=== PATIENT | female | born 1945 | race Caucasian/White ===

== ENCOUNTER 2019-12-24 10:00 | Outpatient (RCR) | payer MEDICARE, MEDICAID, SELFPAY ==
--- NOTE | 2019-12-12 14:36 | PTOPEVAL ---
PHYSICAL THERAPY EVALUATION AND PLAN OF CARE 12-12-2019 The PT evaluation was completed for the diagnosis of balance and gait disorder. Her plan of treatment is scheduled for 2x/week for 4 weeks. Thank you for referring Yesenia Denise to [facility] [place] Please review, sign, date and return this plan of care VALDO. I agree with and certify that the following plan of care is medically necessary. Referring Physician Date Attending Provider: Dr. Alice Reyes *PT Outpatient Evaluation Start: 12/12/19 13:47 Document 12/12/19 13:47 DILSHAD (Rec: 12/12/19 14:31 DILSHAD [id number]) Therapy Assessment Status Assessment Status Assessment Status Evaluation Outpatient Past Medical History Past Medical History Source of Past Medical History Patient Neurological History Hx Neurological Disorders No Significant History Cardiovascular History Hx Hypertension Yes: meds control Hx Other Cardiac Disorders Yes: on blood thinner Respiratory History Hx Chronic Obstructive Pulmonary Disease Yes: inhaler (COPD) Gastrointestinal History Hx Other Gastrointestinal Disorders Yes: benign tumor removed from edge of colon;constipation/diarrhea issues Musculoskeletal History Hx Back Pain Yes: sciatica into R LE Hx Fibromyalgia Yes: neck and B arm pain- to have MRI tomorrow Hx Orthopedic Surgery Yes: B TKR Hx Other Musculoskeletal Disorders Yes: wound R lower leg; 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 Endocrine History Hx Endocrine Disorders No Significant History HEENT History Hx Other HEENT Disorders Yes: med for dry nose , due to cautherized nose for bleeding Other History Hx Other Medical Conditions Yes: obesity; chronic swelling of legs Evaluation Information Problem Diagnosis gait and balance issues Onset Jan 2019 Subjective Information gradual weakness and walking Query Text:As Reported By Patient/ problems, had UTI and dr Family changed meds- was not taking med right and taking too many meds'; Previous Treatments Previous Treatments For This Problem no PT for balance/walking Prior Level of Function Activity Level (Last 3 Months) Occupation retired Indoor/Home Mobility Independent Community Mobility Independent Functional Cognition (Planning, Shopping Independent , Taking Medications) Cooking Yes Cleaning Yes Laundry Yes Shopping Yes Driving
--- NOTE | 2019-12-19 15:04 | PCPTNOTE ---
discussed with pt that our office staff is not allowed to assist pt in/out of the building; as an out pt facility, our pt are required to walk into the building indep. I assisted her to the car at the end of the session for safety and assess her car transfer. But told her in the future, she would have to be able to do this herself.
--- NOTE | 2019-12-26 15:42 | PCPTNOTE ---
Patient called & cancelled scheduled appointment this date due to illness.
--- NOTE | 2019-12-31 13:47 | PCPTNOTE ---
pt called and canceled today's appt due to being ill.
--- NOTE | 2020-01-08 12:40 | PCPTNOTE ---
Patient called & cancelled scheduled appointment this date due to not feeling well.
--- NOTE | 2020-01-11 09:28 | PCPTNOTE ---
pt called and canceled today's appt;
--- NOTE | 2020-01-22 13:20 | PCPTNOTE ---
PHYSICAL THERAPY DISCHARGE 01-22-2020 Attending Provider: Dr. Alice Reyes Patient:Yesenia Denise Date of :1945 Mrs. Denise has not returned for any further treatments since 12/24/2019, therefore she will be discharged at this time. Argelia received the PT evaluation and one treatment session for the diagnosis of gait instability. The goals were not assessed due to her not returning for therapy. Thank you for referring Mrs. Denise to [facility]. Please review, sign, date and return this discharge summary VALDO. I have been updated about the patient's current status and I agree with discharge from the above service at this time. Referring Physician Date
== END 2020-01-22 14:06 | disposition home or self-care (01) ==
LOC: ANHPT 10:00
PROVIDERS: PCP Internal Medicine
DX: R26.81 Unsteadiness on feet (principal); Z91.81 History of falling
CPT/HCPCS: 97110; 97161

== ENCOUNTER 2020-02-07 08:06 | Outpatient (RCR) | payer MEDICARE, MEDICAID, SELFPAY ==
[2019-11-12 10:30] VITALS: BMI 40.7
--- NOTE | 2019-11-20 13:09 | WPDWOUNDNOTE ---
Wound Care Note Date/Time: 11/19/19 13:09 (Backdated to 11/19/19 when patient was seen in wound clinic) History: Past medical history: Paroxysmal atrial flutter on Eliquis for chronic anticoagulation Chronic diastolic heart failure Chronic pain due to Fibromyalgia and Sciatica - on narcotics chronically. Followed at [facility]. Chronic obstructive pulmonary disease Morbid obesity Chronic bilateral venous stasis with superficial bilateral ulcers Social history: The patient lives at home on her own. She is a previous smoker, quite years ago. No alcohol or drug use. Wound history: The patient has been seen in the wound clinic two times prior to today at the request of Dr. Dolan due to her chronic venous stasis ulcers on bilateral lower legs. They have been stable and been performing local wound care to these ulcers with silver gel, mepilex transfer, and compression wraps. The patient has not had issues with these and she continues to see Cardiology for her chronic heart failure and paroxysmal atrial flutter. They have recently increased her Lasix due to weight gain and worsening bilateral lower extremity edema. I am now evaluating the patient in the wound clinic today at the request of the wound care nurses for a right lower extremity hematoma. They state that when she was last seen in the wound clinic, they had noted swelling and tenderness of the right anterior lower leg. The patient had injured the front of her lower leg about 2.5 weeks ago and they were suspicious that there was a hematoma in this location. Upon examining her today, they noticed an open wound that had changed from their last exam and asked if our service could evaluate the patient. The patient has been taking her Eliquis and last took it this morning, which she is taking for the paroxysmal atrial flutter. She denies that the swelling has increased, but does not feel it has gone down in size either. She reports increased tenderness in this area. No purulent drainage that she has noticed. No fever or chills. No other complaints at this time. Wound approximation: No Wound width: 1.7 cm Wound length: 1 cm Wound depth: 3.5 cm Drainage: Bloody drainage after I probed the wound to examine the depth/undermining. Surrounding tissue appearance: Slightly darkened discoloration. No cellulitis, erythema or warmth. Treatment/Procedures: Wound evaluation. Wound care applied as mentioned below following my evaluation. Deferred any surgical intervention today as discussed in the plan. Dressings: Silver gel, mepilex transfer, and compression wraps. Assessment and Plan Assessment and plan (1) Hematoma of right lower extremity: Code(s): S80.11XA - Contusion of right lower leg, initial encounter Status: Acute Assessment and Plan: Right lower leg hematoma due to an injury about 2.5 weeks ago that does not appear to be infected. This has not improved with watching and waiting, although not grown either. She is still taking her Eliquis as prescribed. The overlying skin has started to show some breakdown over the past week and now has a small opening where the hematoma is able to be visualized and probed. This area has a depth of about 3 cm and undermines in all directions about 2-3 cm. There is potential that she may require evacuation of the hematoma if it does not improve, but this may also continue to resolve with time. Due to her being on anticoagulation now, I will not do any debridement or try to evacuate any portion of the hematoma today with her being at a high risk of bleeding. I discussed the patient's case with Dr. Calderon today, since there is concern that this may require evacuation of the hematoma eventually, which I think would likely need to be done in the OR due to her tenderness, the size of the hematoma, and her being on anticoagulation. We will continue local wound care at this time with silver gel over the open wound, mepilex transfer, and wraps. Keep the wound clean by washing
--- NOTE | 2019-11-22 12:36 | WPDWOUNDNOTE ---
Wound Care Note Date/Time: 11/22/19 12:36 patient seen today for wound consultation at the wound clinic. History: History: Past medical history: Paroxysmal atrial flutter on Eliquis for chronic anticoagulation Chronic diastolic heart failure Chronic pain due to Fibromyalgia and Sciatica - on narcotics chronically. Followed at [facility]. Chronic obstructive pulmonary disease Morbid obesity Chronic bilateral venous stasis with superficial bilateral ulcers Social history: The patient lives at home on her own. She is a previous smoker, quite years ago. No alcohol or drug use. Wound history: The patient has been seen in the wound clinic two times prior to today at the request of Dr. Dolan due to her chronic venous stasis ulcers on bilateral lower legs. They have been stable and been performing local wound care to these ulcers with silver gel, mepilex transfer, and compression wraps. The patient has not had issues with these and she continues to see Cardiology for her chronic heart failure and paroxysmal atrial flutter. They have recently increased her Lasix due to weight gain and worsening bilateral lower extremity edema. . Wound history: I am now evaluating the patient in the wound clinic today at the request of the wound care nurses for a right lower extremity hematoma. They state that when she was last seen in the wound clinic, they had noted swelling and tenderness of the right anterior lower leg. The patient had injured the front of her lower leg about 2.5 weeks ago and they were suspicious that there was a hematoma in this location. Upon examining her today, they noticed an open wound that had changed from their last exam and asked if our service could evaluate the patient. The patient has been taking her Eliquis and last took it this morning, which she is taking for the paroxysmal atrial flutter. She denies that the swelling has increased, but does not feel it has gone down in size either. She reports increased tenderness in this area. No purulent drainage that she has noticed. No fever or chills. No other complaints at this time. today when I probed it I was able to get several clots of old blood out of it. We also could probe it is 3.5 cm anteriorly and 3.7 cm directly into the wound. I took a swab C & S to send Wound width: 1.9 cm Wound length: 1.2 cm Wound depth: 3.7 cm Drainage: Bloody drainage and some old blood clot after I probed the wound to examine the depth/undermining. Surrounding tissue appearance: Slightly darkened red discoloration. No cellulitis, erythema or warmth. some swelling or edema. Tunneling: Yes somewhat anteriorly 3.7 cm Percentage granulation tissue: unknown. although I cleaned out with some Q-tips we cannot yet see the wall of the subcutaneous defect. Treatment/Procedures: Wound evaluation. Wound care applied as mentioned below following my evaluation. Deferred any surgical intervention today as discussed in the plan. Dressings: Silver rope into the defect, mepilex transfer, and compression wraps. Dressings: As above Assessment and Plan Assessment and plan (1) Hematoma of right lower extremity: Onset Date: ~10/2019 Code(s): S80.11XA - Contusion of right lower leg, initial encounter Status: Acute Assessment and Plan: This is the main reason for the visit. Will plan to packed this with silver rope and apply compression dressings to her leg and change them twice a week. Culture was sent will watch for the reports. For now I do not believe antibiotics are needed. (2) COPD (chronic obstructive pulmonary disease): Onset Date: Unknown Code(s): J44.9 - Chronic obstructive pulmonary disease, unspecified Status: Acute Assessment and Plan: Continue current medications an inhaler as per PCP (3) Chronic pain: Onset Date: Unknown Code(s): G89.29 - Other chronic pain Status: Acute Assessment and Plan: patient on several different pa
--- NOTE | 2019-12-10 10:49 | PCWOUND ---
Wocn Note Patient cancelled for today due to not feeling well. rescheduled for tomorrow.
--- NOTE | 2019-12-31 09:15 | PCWOUND ---
Wocn NOTe Patient called cancel, she is ill. will keep appointment for this week.
== END 2020-02-10 23:59 | disposition home or self-care (01) ==
LOC: ANHWOC 08:06
PROVIDERS: PCP Physician Assistant; Referring Provider Internal Medicine Cardiovascular Disease; Visit Provider Surgery
DX: I50.32 Chronic diastolic (congestive) heart failure (principal); R60.0 Localized edema
CPT/HCPCS: 29581; 87070; 87077; 87186; 87205; 99212; 99213; A9270; G0463

== ENCOUNTER 2020-02-21 12:32 | Outpatient (RCR) | payer MEDICARE, MEDICAID, SELFPAY ==
[2020-02-11 00:02] VITALS: BMI 40.7
== END 2020-04-09 13:28 | disposition home or self-care (01) ==
LOC: ANHWOC 12:32
PROVIDERS: PCP Physician Assistant; Visit Provider Internal Medicine Cardiovascular Disease
DX: I50.32 Chronic diastolic (congestive) heart failure (principal); R60.0 Localized edema
CPT/HCPCS: 99212; G0463

== ENCOUNTER 2020-07-02 14:14 | Outpatient (CLI) | payer MEDICARE, MEDICAID, SELFPAY | END 2020-07-02 14:15 | disposition home or self-care (01) | PROVIDERS: PCP Physician Assistant; Visit Provider Physician Assistant | DX: R30.9 Painful micturition, unspecified (principal) | CPT/HCPCS: 87077; 87086; 87088 ==

== ENCOUNTER 2020-07-04 13:24 | Outpatient (CLI) | payer MEDICARE, MEDICAID, SELFPAY | END 2020-07-04 13:25 | disposition home or self-care (01) | PROVIDERS: PCP Physician Assistant; Visit Provider Physician Assistant | DX: R30.9 Painful micturition, unspecified (principal) | CPT/HCPCS: 87491; 87591 ==

== ENCOUNTER 2020-08-12 07:43 | Outpatient (RCR) | payer MEDICARE, MEDICAID, SELFPAY ==
[2020-05-15 14:32] VITALS: BMI 39.3
== END 2020-08-13 23:59 | disposition home or self-care (01) ==
LOC: ANHWOC 07:43
PROVIDERS: PCP Physician Assistant; Visit Provider Internal Medicine Cardiovascular Disease
DX: I87.2 Venous insufficiency (chronic) (peripheral) (principal); R60.0 Localized edema; I50.32 Chronic diastolic (congestive) heart failure; E66.01 Morbid (severe) obesity due to excess calories
CPT/HCPCS: 29581; 99212; G0463

== ENCOUNTER 2020-09-09 11:37 | Emergency (ER) | payer MEDICARE, MEDICAID, SELFPAY ==
--- NOTE | ~2020-09-09 | XR_ITS ---
XR chest 2V DATE: 09/09/2020 13:16 INDICATION: Shortness of breath TECHNIQUE: AP and lateral views COMPARISON: 02/25/2019 AP and lateral chest FINDINGS: Cardiomegaly. Aortic arch calcification. There is infiltrate, atelectasis or scarring in th e medial left lower lung; otherwise no pulmonary consolidation or pleural effusion, pulmonary vascula r congestion or pneumothorax. Diffuse osteopenia. 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 There is right glenohumeral joint arthroplasty. IMPRESSION: Cardiomegaly Aortic atherosclerosis Infiltrate, atelectasis or scarring in the medial left lower lung Reviewed, dictated and finalized at location A.
[2020-09-09 12:27] VITALS: BP 131/72; PULSE 85; RESP 20; TEMP 36.3; O2SAT 97
--- NOTE | 2020-09-09 12:40 | ECG_ITS ---
Measurements Intervals [place] Rate: 86 P: NC: 0 QRS: 101 QRSD: 110 T: 11 QT: 384 QTc: 460 Interpretive Statements ATRIAL FIBRILLATION RIGHT AXIS DEVIATION BORDERLINE ST-T WAVE ABNORMALITY- INFERIOR LEADS BASELINE ARTIFACT- I, II, III, AVR, AVL, AVF, V1, V4-V6 ABNORMAL ECG Electronically Signed On 09-09-2020 17:50:57 CDT by James Woodall D.O.
[2020-09-09 12:50] LABS: Basophils Percent Auto 0.5 % (0.2-1.2); Eosinophils Absolute Auto 0.1 K/mm3 (0-0.3); Eosinophils Percent Auto 2.3 % (0-4.4); Hematocrit 39.7 % (37.0-47.0); Hemoglobin 13.2 g/dL (12.0-15.0); Immature Granulocyte Absolute 0.02 K/mm3 (0.00-0.031); Immature Granulocyte Percent A 0.5 % (0-0.5); Lymphocytes Absolute Auto 0.73 K/mm3 (0.9-3.2); Lymphocytes Percent Auto 16.7 % (18.3-44.2); Mean Corpuscular HGB Conc 33.2 g/dl (32-36); Mean Corpuscular Hemoglobin 33.8 pg (26-34); Mean Corpuscular Volume 101.5 fl (80-100); Mean Platelet Volume 8.9 fl (7.4-10.4); Monocytes Absolute Auto 0.2 K/mm3 (0.1-0.6); Monocytes Percent Auto 4.8 % (2.6-8.5); Neutrophils Absolute Auto 3.3 K/mm3 (1.3-6.7); Neutrophils Percent Auto 75.2 % (45.5-73.1); Platelet Count Result 205 k/mm3 (150-375); Red Blood Count 3.91 M/mm3 (4.2-5.4); White Blood Count 4.4 K/mm3 (4.5-10.0)
[2020-09-09 13:02] LABS: INR 1.2; Prothrombin Time 15.9 Seconds (11.1-14.7)
[2020-09-09 13:03] LABS: Partial Thromboplastin Time 36.8 SECONDS (22.3-36.8)
[2020-09-09 13:04] LABS: Anion Gap 1 mmol/L (8-16); Blood Urea Nitrogen 18 mg/dL (7-17); Calcium 9.3 mg/dL (8.4-10.2); Carbon Dioxide 37 mmol/L (22-30); Chloride 99 mmol/L (98-107); Estimated CRCL calculation 69 ml/min; Estimated Glomerular Filt Rate > 60; Glucose 132 mg/dL (65-105); Potassium 4.2 mmol/L (3.4-5.0); Sodium 137 mmol/L (137-145)
[2020-09-09 13:06] VITALS: BP 131/72; PULSE 88; RESP 18; TEMP 36.3; O2SAT 99
[2020-09-09 13:16] LABS: NT Pro B Type Natriuretic Pept 1570 pg/mL (5-100); Troponin I < 0.012 ng/mL (0.000-0.034)
[2020-09-09 13:39] LABS: Add Urine Microscopic? NO; Appearance Urine Clear (Clear); Bilirubin Urine Negative (Negative); Blood Urine Negative (Negative); Color Urine Straw (Yellow); Glucose Urine UA Negative (Negative); Ketones Urine Negative (Negative); Leukocyte Esterase Ur Negative LEU/UL (Negative); Nitrate Urine Negative (Negative); Protein Urine Negative (Negative); Specific Grav Ur 1.006 (1.001-1.035); Urobilinogen Urine Negative mg/dL (<2.0)
--- NOTE | 2020-09-09 14:13 | PCCCNOTE ---
Care Coordination visited pt about need for rehab. Son concerned she needs rehab. Explained to pt she would go to long term under Medicaid and get limited rehab. Informed her that the long term would take her Social Security money except for $30/month. Discussed home health therapy and out patient therapy. Pt states she can't always drive to get to therapy but her Medicaid pays for transportation. Gave pt list of local nursing homes and assisted living. Spoke to son on telephone per pt request and explained same to him. Pt and son aware her PMD would need to order home health. Pt is active with wound care for chronic wounds on her legs.
--- NOTE | 2020-09-09 14:32 | ED.LOWEXIN ---
HPI - Extremity Injury (Lower) General Chief Complaint: Extremity Injury, Lower Stated Complaint: bilateral leg pain, n/v Time Seen by Provider: 09/09/20 13:09 History of Present Illness HPI Narrative: Patient is a 75-year-old female who presents ER with multiple issues. Her main issue is that she is having increased mobility issues related to chronic lower extremity edema/lymphedema. She is supposed to walk with a walker or a cane. She has had a couple episodes recently where she is fallen in her room and she has been unable to use her walker and cane. She did not strike her head or lose consciousness. She also reports 3 to 4 days ago she had a episode of chest discomfort in the evening that really worried her. . She has no chest discomfort at this time. She without any fevers or chills or sweats. Patient son has called and requested patient be put in a rehabilitation facility. Review of Systems Review of Systems: All systems reviewed & are unremarkable except as noted in HPI and below Constitutional: Constitutional: Denies chills, Denies fever(s) and Denies weakness ENT: Denies nasal congestion and Denies sore throat Cardiovascular: Cardiovascular: Reports chest pain, Denies rapid heart rate and Denies radiating jaw, neck or arm pain Respiratory: Respiratory: Denies cough, Denies dyspnea and Denies wheezing Gastrointestinal: Gastrointestinal: Denies abdominal pain, Denies nausea and Denies vomiting Genitourinary: Genitourinary: Reports nocturia, Denies dysuria and Reports urinary incontinence (Chronic) [facility] Past Medical History Medical History (Updated 09/09/20 @ 15:17 by Magnus William MD) Atrial fibrillation Breast cancer Hyperlipidemia Hypertension Surgical History Surgical History (Updated 09/09/20 @ 14:40 by Magnus William MD) History of knee replacement Social History Social History (Updated 09/09/20 @ 14:40 by Magnus William MD) Smoking status: Never smoker Exam Narrative: Exam Narrative: GENERAL: Well-appearing, morbidly obese, and in no acute distress. HEAD: Normocephalic, atraumatic. ENT: Mucous membranes moist. CHEST: Clear to auscultation. No respiratory distress. HEART: Irregular regular rate and rhythm. Normal peripheral pulses. ABDOMEN: Soft, nontender, nondistended. EXTREMITIES: Normal range of motion. Chronic lower extremity edema with leg wraps present. SKIN: Warm, dry, no rash. NEURO: Alert and oriented x3. PSYCH: Normal mood and affect. Course Course Emergency Course: Patient resting comfortably. She has been evaluated by wound care who reports they have no open sores on the legs treated. Therefore patient has been chronically noncompliant over the last 2 years about management of her edema. Care coronation has been to see the patient given her resources and also talk to the son. Patient most likely just needs home health or assisted living. Patient has been up and ambulatory with a walker without issue. Vital Signs Vital signs: Vital Signs Temperature 97.4 F L 09/09/20 12:27 Pulse Rate 85 09/09/20 12:27 Respiratory Rate 20 09/09/20 12:27 Blood Pressure 131/72 09/09/20 12:27 Pulse Oximetry 97 09/09/20 12:27 Temperature 97.4 F L 09/09/20 13:06 Pulse Rate 88 09/09/20 13:06 Respiratory Rate 18 09/09/20 13:06 Blood Pressure 131/72 09/09/20 13:06 Pulse Oximetry 99 09/09/20 13:06 MDM - Extremity Injury (Lower) Lab Data Result diagrams: 09/09/20 12:46 09/09/20 12:46 Labs: Lab Results 09/09/20 09/09/20 09/09/20 Range/Units 12:46 12:46 12:46 WBC 4.4 L (4.5-10.0) K/mm3 RBC 3.91 L (4.2-5.4) M/mm3 Hgb 13.2 (12.0-15.0) g/dL Hct 39.7 (37.0-47.0) % MCV 101.5 H (80-100) fl MCH 33.8 (26-34) pg MCHC 33.2 (32-36) g/dl RDW 15.0 H (11.5-14.5) % Plt Count 205 (150-375) k/mm3 MPV 8.9 (7.4-10.4) fl Immature Gran % (Auto) 0.5 (0-0.5) % Neut % (Auto)
== END 2020-09-09 15:47 | disposition home or self-care (01) ==
PROVIDERS: Emergency Provider Emergency Medicine
DX: I89.0 Lymphedema, not elsewhere classified (principal); I48.91 Unspecified atrial fibrillation; E78.5 Hyperlipidemia, unspecified; I10 Essential (primary) hypertension; Z85.3 Personal history of malignant neoplasm of breast; Z96.659 Presence of unspecified artificial knee joint; R94.31 Abnormal electrocardiogram [ECG] [EKG]
CPT/HCPCS: 36415; 71046; 80048; 81003; 83880; 84484; 85025; 85610; 85730; 93005; 99284

== ENCOUNTER 2020-10-01 07:22 | Outpatient (RCR) | payer MEDICARE, MEDICAID, SELFPAY ==
[2020-08-14 00:12] VITALS: BMI 39.3
--- NOTE | 2020-09-09 10:46 | PCWOUND ---
WOCN NOTE Patient called to cancel appointment for today. Patient states she fell and that she was going to the ER
== END 2020-11-13 23:59 | disposition home or self-care (01) ==
LOC: ANHWOC 07:22
PROVIDERS: PCP Physician Assistant; Visit Provider Internal Medicine Cardiovascular Disease
DX: I87.2 Venous insufficiency (chronic) (peripheral) (principal); R60.0 Localized edema; I50.32 Chronic diastolic (congestive) heart failure; E66.01 Morbid (severe) obesity due to excess calories
CPT/HCPCS: 29581; 99211; 99212; G0463

== ENCOUNTER 2020-10-24 12:30 | Outpatient (RCR) | payer MEDICARE, MEDICAID, SELFPAY ==
--- NOTE | 2020-09-24 13:48 | PTOPEVAL ---
PHYSICAL THERAPY EVALUATION AND PLAN OF CARE 09-24-20 Thank you for referring Yesenia Denise to [facility], for the diagnosis of B LE lymphedema. Yesenia is scheduled to be seen for therapy? 3 x/week for 4 weeks. Please review, sign, date and return this plan of care VALDO. I agree with and certify that the following plan of care is medically necessary. Referring Physician Date Attending Provider: Zac Mendez MD *PT Outpatient Evaluation Document 09/24/20 12:35 DILSHAD (Rec: 09/24/20 13:48 DILSHAD [id number]) Outpatient Past Medical History Past Medical History Source of Past Medical History Recalled from Previous Visit, Confirmed with Patient/Family Neurological History Hx Other Neurological Disorders Yes: neuropathy in feet and hands Cardiovascular History Hx Atrial Fibrillation Yes Hx Congestive Heart Failure Yes Hx Hypercholesterolemia Yes Hx Hypertension Yes Hx Other Cardiac Disorders Yes: L LE DVT Respiratory History Hx Chronic Obstructive Pulmonary Disease Yes (COPD) Hx Pneumonia Yes Hx Sleep Apnea Yes: to have sleep study done Gastrointestinal History Hx Esophageal Disorders Yes: have had esophagus stretched Hx Gastroesophageal Reflux Disease Yes Hx Other Gastrointestinal Disorders Yes: 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 Genitourinary History Hx Other Genitourinary Disorders Yes: incontinence Musculoskeletal History Hx Back Pain Yes: pain injections for back and hip pain L Hx Fibromyalgia Yes Hx Joint Replacement Yes: both knees, R shoulder Hx Other Musculoskeletal Disorders Yes: left hand surgery Hematological History Hx Hematological Disorders No Significant History Endocrine History Hx Endocrine Disorders No Significant History HEENT History Hx Cataracts Yes Hx Tonsillectomy Yes Integumentary History Hx Other Skin Disorders Yes: venous stasis ulcers B LE - PRN wound care Reproductive History Hx Tubal Ligation Yes Hx Other Reproductive Disorders Yes: oophorectomy Psychosocial History Hx Depression Yes Pain History Has Past Pain Affected Your Daily Life Yes History of Long-Term Prescription Pain Yes Medication Use (Opiates) Effective Methods of Pain Control oral pain medication and gel topical pain medication Anesthesia History Hx Anesthesia Reactions No Significant History Other History Hx Cancer Yes: R breast mastectomy, no radiation or chemo Hx Other Medical Conditions
--- NOTE | 2020-10-24 13:29 | PTOPEVAL ---
PHYSICAL THERAPY DISCHARGE 10-23-20 Refer to the clinical summary below for her status with today's discharge, compared to the initial eval. The goals were achieved; she made excellent progress and improvements. Thank you for referring Yesenia Denise to [facility].? Please review, sign, date and return this Discharge VALDO. I agree with and certify that the following plan of care is medically necessary. Referring Physician Date Attending Provider: Zac Mendez MD Document 10/24/20 12:40 DILSHAD (Rec: 10/24/20 13:29 DILSHAD [id number]) Assessment Status Discharge Subjective Information Yesenia reports: legs are doing Query Text:As Reported By Patient/ good; when walked yesterday Family to dr office and walk about 10 minutes with the walker and did OK; is going to have a home demonstration of the home pump next week; is very pleased with how small her legs are and agrees to discharge. Pain Assessment Timing of Pain Assessment Timing of Pain Assessment Assessment Self Report Self Report Pain Level 0 Pain Score Pain Score 0: Self Report Additional Pain Score Comments have pain in toes, neuropathy maybe there; Lower Extremity Range of Motion General Lower Extremity Range of Motion Gross Lower Extremity Range of Motion sitting ankle DF B 10'; knee Comments WNL B and without reports of pain; Lower Extremity Muscle Strength Testing General Lower Extremity Strength Gross Lower Extremity Strength functional strength: supine R and L SLR x 25 reps; Transfer Assessment Chair Transfer Assessment Sit to Stand Chair Transfer Ability Independent Stand to Sit Chair Transfer Ability Independent Chair Transfer Comments without use of UE's for transfer Bed Mobility Assessment Bed Mobility Bed Type Mat Overall Bed Mobility Ability Independent Bed Mobility Comments legs off/on mat indep, without UE use Gait Assessment Gait Assessment Ambulation Assistive Devices None,Walker, Rollator Ambulation Distance 150 Query Text:(Feet) Ambulation Destination In Corridor Ambulation Ability Independent Additional Ambulation Comments to dept ambulated without rest 150' reports at home, walking some in house without the walker; Lymphedema Evaluation Skin Inspection Location Left Lower Extremity,Right
== END 2020-10-27 09:26 | disposition home or self-care (01) ==
LOC: ANHPT 12:30
PROVIDERS: PCP Physician Assistant; Visit Provider Internal Medicine Cardiovascular Disease
DX: I89.0 Lymphedema, not elsewhere classified (principal)
CPT/HCPCS: 29581; 97016; 97110; 97140; 97162

== ENCOUNTER 2020-10-29 09:09 | Outpatient (CLI) | payer MEDICARE, MEDICAID, SELFPAY ==
--- NOTE | ~2020-10-29 | MM_ITS ---
EXAMINATION: MM screening nelly LT w roshni HISTORY: Screening TECHNIQUE: Craniocaudal and mediolateral oblique 3-D tomosynthesis images were obtained and synthetic 2-D images were generated. CAD analysis was submitted and interpreted. COMPARISON: Comparison to multiple prior studies sequentially, with oldest reviewed study dated 03/03. BREAST PARENCHYMAL COMPOSITION: There are scattered areas of fibroglandular density. FINDINGS: There is no evidence of suspicious mass, calcification, or architectural distortion to sugg est malignancy in the left breast. There has been no suspicious interval change. IMPRESSION: 1. No mammographic evidence of malignancy. 2. Recommend routine screening mammography in one year. BI-RADS Category 1: Negative Reviewed, dictated and finalized at location A.
== END 2020-10-29 09:10 | disposition home or self-care (01) ==
LOC: ANHIMG 09:14
PROVIDERS: PCP Physician Assistant; Visit Provider Obstetrics & Gynecology
DX: Z12.31 Encounter for screening mammogram for malignant neoplasm of breast (principal)
CPT/HCPCS: 77063; 77067

== ENCOUNTER 2020-12-09 09:33 | Outpatient (CLI) | payer MEDICARE, MEDICAID, SELFPAY ==
--- NOTE | 2021-01-02 20:15 | WPDSLEEPSTUD ---
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 She has been putting this testing off for some time. She often is so tired that she falls asleep in her recliner and then when she wakes up to go to bed she is not quite as sleepy. She rarely wakes up from sleep feeling short of breath and rarely awakens at night with heartburn, belching or coughing. She has tried some medications to help her fall asleep but these have not been successful. She occasionally snores and rarely is at loud enough that others complain about it. She frequently has trouble sleeping with a cold. She rarely wakes up gasping for breath at night. She really has breathing problems at night observed by others. She occasionally sweats excessively at night. She rarely notices her heart pounding or beating irregularly at night. She rarely falls asleep during the day, rarely falls asleep involuntarily but never falls asleep while driving. she does not have loss of muscle tone with strong emotion. She does not have daytime difficulties due to excessive sleepiness. She does not feel paralyzed on waking or falling asleep. She occasionally has vivid dreamlike scenes upon awakening or falling asleep. She does not feel afraid to go to sleep. She occasionally has nightmares. She rarely remembers her dreams. She frequently has racing thoughts, feelings of sadness, depression and anxiety. She occasionally has muscular tension and occasionally notices parts of her body jerking. She rarely kicks at night. She frequently has crawling aching feelings in her legs and frequently has leg pain during the night. She rarely has morning jaw pain. She frequently grinds her teeth during sleep. She constantly is bothered by pain during the day. She frequently is awakened by pain at night. She constantly wakes up feeling stiff in the morning with sore or achy muscles frequently wakes up with pain in the neck and spine. She has fatigue, memory problems, concentration difficulties and depression Normal bedtime is around 10:00 p.m. often taking 2 hours to fall asleep. She may wake up twice at night. While she awakens she will use the television or iPad. She stays awake on average a 1/2 hour before returning to sleep. She wakes the morning by 8:30 a.m.. On the weekends she may stay awaken hour later, going to bed at 11:00 p.m. and waking at 9:30 a.m.. She does not take naps but does fall asleep in her recliner/. She is not refreshed after taking a nap. She is drowsy in the morning for 2 hours. She feels better in the afternoon compared to the morning. Habits: Never smoked tobacco. Caffeine 16 ounces, on some days. No alcohol or recreational drugs. [facility] Past Medical History Medical History Anticoagulant long-term use (Unknown) Atrial fibrillation Breast cancer Chronic diastolic (congestive) heart failure (Unknown) Chronic pain (Unknown) COPD (chronic obstructive pulmonary disease) (Unknown) Fibromyalgia Hyperlipidemia Hypertension Paroxysmal atrial flutter Sciatica Venous stasis of both lower extremities Surgical History Surgical History History of cardiac cath 2016 with no evidence of CAD History of knee replacement Social History Social History Smoking status: Never smoker Gender identity (if verbalized by the patient): Female Sexual Or
[2021-01-02 20:31] VITALS: BMI 37.5
== END 2020-12-10 07:14 | disposition home or self-care (01) ==
LOC: ANHCSM 09:33
PROVIDERS: PCP Physician Assistant; Visit Provider Internal Medicine Cardiovascular Disease
DX: G47.33 Obstructive sleep apnea (adult) (pediatric) (principal)
CPT/HCPCS: 95811

== ENCOUNTER 2021-04-23 13:57 | Outpatient (CLI) | payer MEDICARE, MEDICAID, SELFPAY ==
--- NOTE | ~2021-04-23 | US_ITS ---
EXAMINATION: US art doppler w press LE DATE: 04/23/2021 15:26 KILN CHARGER INDICATION: Peripheral arterial disease TECHNIQUE: Segmental pressures and plethysmographic and Doppler waveforms of the brachial and lower e xtremity arteries were obtained. COMPARISON: None. FINDINGS: Right and left brachial artery pressures of 125 mm Hg and 127 mm Hg, respectively, are concordant (no rmal difference <= 30 mmHg). The right high-thigh pressure index is 1.19 (normal > 1.2). The right ankle-brachial index (KOLBY) is 0 .92 (normal >= 0.9-1.0). The right great toe-brachial index (TBI) is 1.32 (normal >= 0.60). The right lower extremity segmental pressure gradients are normal (normal gradients <= 20-30 mmHg between gregory cent levels on the same leg or the same levels on the two legs). Arterial Doppler waveforms are bipha sic. The left high-thigh pressure index is 1.31. The left KOLBY is 1.06. The left TBI is 0.63. The left lowe r extremity segmental pressure gradients are normal. Arterial Doppler waveforms are biphasic. IMPRESSION: 1. Normal bilateral ankle and toe brachial indices. Reviewed, dictated and finalized at location A. CHARGER
== END 2021-04-23 13:58 | disposition home or self-care (01) ==
LOC: ANHIMG 14:05
PROVIDERS: PCP Physician Assistant; Visit Provider Podiatrist Foot & Ankle Surgery
DX: I73.9 Peripheral vascular disease, unspecified (principal)
CPT/HCPCS: 93923

== ENCOUNTER 2021-05-26 07:57 | Outpatient (CLI) | payer MEDICARE, MEDICAID, SELFPAY ==
--- NOTE | ~2021-05-26 | US_ITS ---
EXAMINATION: US venous doppler [facility] DATE: 05/26/2021 08:38 INDICATION: Left lower limb pain. TECHNIQUE: Grayscale ultrasound images without and with compression and Doppler ultrasound images of the left lower extremity veins were obtained. COMPARISON: Ultrasound 10/31/2018 FINDINGS: The visualized portions of left common femoral vein, profunda (deep) femoral vein, femoral vein, popl iteal vein, peroneal veins, posterior tibial veins, and greater saphenous vein outflow are patent. IMPRESSION: 1. No deep venous thrombosis. Reviewed, dictated and finalized at location A. [facility] [employer]
== END 2021-05-26 07:58 | disposition home or self-care (01) ==
LOC: ANHIMG 08:02
PROVIDERS: PCP Physician Assistant; Visit Provider Podiatrist Foot & Ankle Surgery
DX: M79.662 Pain in left lower leg (principal); I82.409 Acute embolism and thrombosis of unspecified deep veins of unspecified lower extremity
CPT/HCPCS: 93971

== ENCOUNTER 2021-08-07 14:00 | Outpatient (RCR) | payer MEDICARE, MEDICAID, SELFPAY ==
--- NOTE | 2021-07-22 13:47 | PTOPEVAL ---
PHYSICAL THERAPY EVALUATION AND PLAN OF CARE 07-22-21 Thank you for referring Yesenia Denise to [facility] for the diagnosis of B LE lymphedema. Yesenia is scheduled to be seen for therapy? 3 x/week for 4 weeks. Please review, sign, date and return this plan of care VALDO. I agree with and certify that the following plan of care is medically necessary. 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;consti/diarrhea issues Genitourinary History Hx Other Genitourinary Disorders Yes: incontinence Musculoskeletal History Hx Back Pain Yes: sciatica into R LE Hx Fibromyalgia Yes: neck and B arm pain Hx Other Musculoskeletal Disorders Yes: to have L total shoulder replacement 08-20-21 Hematological History Hx Hematological Disorders No Significant History Endocrine History Hx Endocrine Disorders No Significant History HEENT History Hx Cataracts Yes Hx Tonsillectomy Yes Integumentary History Hx Other Skin Disorders Yes: venous stasis ulcers B LE -healed Reproductive History Hx Tubal Ligation Yes Hx Other Reproductive Disorders Yes: oophorectomy Psychosocial History Hx Depression Yes Pain History Has Past Pain Affected Your Daily Life Yes History of Long-Term Prescription Pain Yes Medication Use (Opiates) Effective Methods of Pain Control oral pain medication and gel topical pain medication Anesthesia History Hx Anesthesia Reactions No Significant History Other History Hx Other Medical Conditions Yes: obesity- reports wt stable; chronic swelling of legs Evaluation Information Problem Diagnosis R and L LE lymphedema Onset 2021 Prior Level of Function Activity Level (Last 3 Months) Activity of Daily Living Ability Independent Indoor/Home Mobility Independent Community Mobility Independent Stairs Ability Independent Functional Cognition (Planning, Shopping Independent , Taking Medications) Cooking Yes Cleaning
--- NOTE | 2021-07-29 09:46 | PCPTNOTE ---
pt called and canceled due to having stomach issues.
--- NOTE | 2021-08-07 14:44 | PTOPEVAL ---
PHYSICAL THERAPY DISCHARGE 08-07-21 Refer to the clinical summary below, for her status today, compared to the initial evaluation. The goals have been achieved, therefore, she will be discharged from PT services. Thank you for referring Yesenia Denise to [facility].? Please review, sign, date and return this Discharge report VALDO. I agree with and certify that the following plan of care is medically necessary. Referring Physician Date Attending Provider: Zac Mendez MD subjective information Yesenia reports: her legs look back to normal size; her son ordered her some capris off the internet lymphedema site; no questions about doing self massage or her garments. She is having shoulder surgery in one week; son will assist her at home after her surgery; agrees to discharge from PT today. Pain Assessment Self Report Pain Level 0 Pain Score Pain Score 0: Self Report Additional Pain Score Comments sometimes have a quick, short pain in legs- like squeezing leg or quick hurting;not sure why Skin Inspection Location Left Lower Extremity,Right Lower Extremity Skin Observations Absence of Leg Hair, Hemosiderin Staining,Obesity Palpation Findings Cool Skin Temperature Tissue Texture Normal Lymphedema Stage I Skin Inspection Comment R LE: hemosiderin staining from ankle to 28 cm from bottom of foot; no fibrotic tissue, no edema over toes or dorsum of foot; good skin color and no edema over knee and thigh; no dry or flaking skin L LE: hemosiderin staining from ankle to 28 cm from bottom of foot; no fibrotic tissue, no edema over toes or dorsum of foot, except 2nd toe is enlarged with nail bed missing; knee and thigh with good skin color and no fibrotic tissue; no dry or flaking skin to dept without garments,
== END 2021-08-10 12:19 | disposition home or self-care (01) ==
LOC: ANHPT 14:00
PROVIDERS: PCP Physician Assistant; Visit Provider Internal Medicine Cardiovascular Disease
DX: I89.0 Lymphedema, not elsewhere classified (principal)
CPT/HCPCS: 29581; 97140; 97161